=== PATIENT | female | born 1995 | race Caucasian/White ===

== ENCOUNTER 2017-11-21 16:30 | Emergency (ER) | payer BC, OTHER ==
[~2017-11-21] VITALS: Ht 167.6 cm; Wt 90.7 kg
[2017-11-21] MEDS ORDERED: BENADRYL25 MG PO (18:22)
[2017-11-21] MEDS ORDERED: PREDNISONE 20 M20 MG PO (18:22)
[2017-11-21] MEDS ORDERED: CONCERTA36 M1 PO (19:01)
== END 2017-11-21 18:30 | disposition home or self-care (01) ==
LOC: ER 16:30
DX: T78.40XA Allergy, unspecified, initial encounter (principal); Z88.8 Allergy status to other drugs, medicaments and biological substances; X58.XXXA Exposure to other specified factors, initial encounter